=== PATIENT | female | born 1975 | race Caucasian/White ===

== ENCOUNTER 2016-10-16 06:09 | Day surgery (SDC) | payer BC ==
[~2016-10-16] VITALS: Ht 170.2 cm; Wt 125.4 kg
--- NOTE | ~2016-10-16 | OR ---
PATIENT'S NAME: RAIN [facility] AGE: 41 Y [address] ROOM: [address] [address] LOCATION: GOBS ADMIT DATE: 10/16/2016 OR/Procedure Report DISCHARGE DATE: FAMILY PHYSICIAN: Cheli Li MD ATTENDING PHYSICIAN: MARLI BARBA SURGEON: Marli Barba MD CNC MANAGER: Jimmy Monk MD. DATE OF PROCEDURE: 10/16/2016 PREOPERATIVE DIAGNOSES: 1. Abnormal uterine bleeding with heavy menstrual bleeding. 2. 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 3. Obesity. POSTOPERATIVE DIAGNOSES: 1. Abnormal uterine bleeding with heavy menstrual bleeding. 2. 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 3. Obesity. PROCEDURE PERFORMED: Robotic-assisted total laparoscopic hysterectomy with bilateral salpingectomy and right oophorectomy, and exam under anesthesia. ESTIMATED BLOOD LOSS: 100 mL. FINDINGS: Enlarged uterus, approximately 10 to 12 weeks in size. Normal- appearing bilateral fallopian tubes. Right ovary enlarged to approximately 8 cm in size with cystic and solid components. On gross inspection, it appeared to have hair and cartilage present within it. Normal-appearing peritoneal surfaces. SPECIMENS: Uterus, cervix, bilateral tubes, and right ovary. ANESTHESIA: General. ANTIBIOTICS: 3 g Ancef. COMPLICATIONS: None. DISPOSITION: The patient is stable and sent to PACU. INDICATION FOR THE PROCEDURE: The patient is a 41-year-old multiparous female, who was evaluated in the office for findings of a right ovarian teratoma noted on an outside CT scan. The patient had been having issues with right lower quadrant pain. On repeat ultrasound in the office, it was measuring approximately 7 to 8 cm in size. The cystic and solid components PATIENT'S NAME: LUIZA RODRIGEZ [facility] AGE: 41 Y [address] ROOM: [address] [address] LOCATION: [facility] ADMIT DATE: 10/16/2016 OR/Procedure Report DISCHARGE DATE: FAMILY PHYSICIAN: Cheli Li MD ATTENDING PHYSICIAN: MARLI BARBA with a single septation. CA-125 was obtained which was 34. The patient was also complaining of abnormal uterine bleeding with heavy menses and desired a hysterectomy to go along with her right oophorectomy. She was aware of the risks and benefits of the procedure to include, but not limited to, risk of bleeding, risk associated with anesthesia, risk of thromboembolism, risk of infection, and risk of injury to bowel and bladder. She was aware of the risks and desired to proceed. Due to the size of her ovary as well as her uterus, she was aware of the possibility of having to convert to an open procedure. She was recommended to undergo the procedure robotically to safely assure minimally invasive procedure. DESCRIPTION OF PROCEDURE: The patient was seen in the preoperative area where consents were reviewed, all questions answered. She was then taken back to the operating room, where general anesthesia was established without difficulty. She was positioned in dorsal lithotomy position in [facility]. Trendelenburg was tested and found to be appropriate. She was then prepped and draped in the usual sterile fashion. Galdamez catheter was placed. Weighted speculum was placed in the patient's vagina. A [place] was used to retract anteriorly. The cervix appeared normal. Uterus sounded to 10 cm. A single stitch was placed through the anterior lip of the cervix and the KASSI manipulator was placed using the large colpotomy cups. Balloons were tested prior to placement and confirmed to be working. Surgeon's gloves were then changed and instruments other than the KASSI were removed from the patient's vagina. Attention was then turned to the patient's abdomen. A scalpel was used to make an 8 mm incision approximately 20 cm superior to the pubic symphysis. A Veress needle was introduced through this and intraabdominal placement was confirmed with an opening pressure of 4. Abdomen was allowed to insufflate to a pressure of 15 mmHg. A trocar was then advanced through this opening and placed and was confirmed with the camera. Under direct visualization, 3 additional 8 mm ports were placed for the robot and additional 8 mm port was placed in the patient's right upper quadrant for the industrial hire sales assistant port. Abdominal surfaces appeared normal. Uterus appeared slightly enlarged, approximately 10 to 12 weeks in size. Right ovary appeared enlarged as well as the cystic and solid components. Tubes appeared normal. Robot was docked and instruments introduced under direct visualization. Starting on the patient's left side, the left fallopian tube was transected from the ovary using cautery. Incision was then made through the left round ligament. Successive bites were taken down the left side of the uterine to cauterize the uterine arteries. Then focusing on the patient's right side, the right IP was grasped and cauterized. The ureter had previously been identified and visualized well. The IP was cauterized and transected. Successive bites were then taken to free the right ovary and then cautery was performed through the right round ligament. This was also carried down the right side through to cauterize off the uterine arteries. Bladder flap was then created. Uterine arteries were again inspected and appeared to be down well. The vaginal balloon was inflated, and the colpotomy was started on the anterior aspect and PATIENT'S NAME: LUIZA RODRIGEZ [facility] AGE: 41 Y [address] ROOM: [place] [id number] LOCATION: [facility] ADMIT DATE: 10/16/2016 OR/Procedure Report DISCHARGE DATE: FAMILY PHYSICIAN: Cheli Li MD ATTENDING PHYSICIAN: MARLI BARBA carried around. The uterus was transected. Uterus, bilateral tubes, and right ovary were removed together. Prior to removal, there had been no evident cystic fluid that appeared to have leaked out from the right ovary. Once the specimens were out, an Asepto was placed in the patient's vagina and the pelvis was copiously irrigated. Colpotomy area appeared hemostatic and was reapproximated using a barbed suture. An area of bleeding was appreciated on the right and was made hemostatic using cautery and suture. Incision and pedicles were again inspected and found to be hemostatic. Robot was undocked and Asepto removed from vagina. All instruments were removed from the abdomen. Incision sites were closed with 4-0 Vicryl on a curved needle and Dermabond. All needle, sponge, and instrument counts were noted to be correct x2. The patient was taken to the PACU in stable condition. MARLI BARBA MD GT/modl /[id number] d: 10/16/16 1205 t: 06/17/17 0856, OPERATIVE SUMMARY
[~2016-10-16 06:09] MED LIST: ONE DAILY WOME1 EAC1 PO
[2016-10-16 07:16] LABS: BASOPHIL # 0.1 K/uL (0.0-0.2); BASOPHIL % 0.8 %; EOSINOPHIL # 0.4 K/uL (0.0-0.5); EOSINOPHIL % 3.7 %; HEMATOCRIT 41.2 % (33.0-46.0); HEMOGLOBIN 13.3 g/dL (11.0-15.0); IMMATURE GRANULOCYTE % 0.4 %; LYMPHOCYTE # 2.6 K/uL (0.8-4.0); LYMPHOCYTE % 24.1 %; MCH 30.2 pg (27.0-34.0); MCHC 32.3 gm/dL (32.0-36.5); MCV 93.4 fl (83.0-98.0); MONOCYTE # 1.1 K/uL (0.0-1.0); MONOCYTE % 9.7 %; MPV 11.6 fl (9.4-12.4); NEUTROPHIL # (ANC) 6.7 K/uL (1.8-7.8); NEUTROPHIL % 61.3 %; NRBC % 0 /100WBC (0-0.00); PLATELET COUNT 272 K/uL (150-450); RDW-CV 13.2 % (11.9-14.6); WBC 10.9 K/uL (4.0-11.0)
[2016-10-16 07:28] LABS: RBC 4.41 M/uL (3.50-5.50)
--- NOTE | 2016-10-16 18:00 | NUR ---
Significant Event:VS WNL,AFEBRILE. ABD. PUNCTURE SITES INTACT. Follow up:GOOD METCALF OUTPUT,CLEAR YELLOW URINE. NOT PASSING FLATUS YET. UP IN PEDRO W/ STAND BY ASSIST. GOOD NUTRITION.
[2016-10-17] MEDS ORDERED: ULTRAM50 MG PO (08:43)
[2016-10-17] MEDS ORDERED: MOTRIN800 MG PO (08:43)
[2016-10-17] MEDS ORDERED: COLACE100 MG PO (08:44)
== END 2016-10-17 09:50 | disposition disaster alternative care site (69) ==
LOC: GSDC 06:09 → GOBS 06:09 → GSDC 07:00
PROVIDERS: Obstetrics & Gynecology
PROC: 0UT24ZZ Resection of Bilateral Ovaries, Percutaneous Endoscopic Approach (ICD-10-PCS; principal; 2016-10-16)
PROC: 8E0W4CZ Robotic Assisted Procedure of Trunk Region, Percutaneous Endoscopic Approach (ICD-10-PCS; principal; 2016-10-16)
PROC: 0UT74ZZ Resection of Bilateral Fallopian Tubes, Percutaneous Endoscopic Approach (ICD-10-PCS; principal; 2016-10-16)
PROC: 0UTC4ZZ Resection of Cervix, Percutaneous Endoscopic Approach (ICD-10-PCS; principal; 2016-10-16)
PROC: 0UT94ZZ Resection of Uterus, Percutaneous Endoscopic Approach (ICD-10-PCS; principal; 2016-10-16)
DX: N93.8 Other specified abnormal uterine and vaginal bleeding (principal); D27.0 Benign neoplasm of right ovary; E66.01 Morbid (severe) obesity due to excess calories; Z68.41 Body mass index [BMI] 40.0-44.9, adult
CPT/HCPCS: J0131; J0690; J1100; J1885; J2001; J2250; J2405; J2550; J3010; J7120